=== PATIENT | female | born 1995 | race Caucasian/White ===

== ENCOUNTER → 2019-11-09 | Outpatient (CLI) | payer OTHER ==
[2016-06-08 20:15] VITALS: BP 104/64
[~2019-11-09] MED LIST: HYDR-2155 PO; ONDA4TAB10 PO
--- NOTE | 2019-11-09 16:20 | RAD ---
OB ultrasound greater than 14 weeks 11/09/2019 Clinical History: Second trimester . Size/date discrepancy. Technique: A real-time ultrasound examination of the gravid uterus was performed. Multiple images were obtained. Findings: Comparison study is dated 09/17/2019. There is a single living IUP. The fetus is in a cephalic position. cardiac and somatic activity is seen. The heart rate is 141 beats per minutes. The maternal cervix is closed. It measures 4.6 cm in length. The placenta is posterior. No abnormality is seen. The amniotic fluid volume is within normal limits. Neither maternal ovary is visualized. No adnexal mass is seen. The following measurements were obtained: BPD 6.0cm 24 weeks to days HC 22 cm 24weeks 0 days AC 19.3 cm 24weeks 0 days FL 4.3 cm 23 weeks 6 days The estimated gestational age by ultrasound is 24 weeks 0 days plus or minus a standard deviation of 10 days. The estimated date of delivery by ultrasound is 02/29/2020. Since the previous examination there has been appropriate interval growth. No abnormality is seen. Specifically the stomach, bladder, kidneys, 3 vessel cord and cord insertion, cisterna magna, cerebellum, nose/mouth, spine and extremities are well-visualized and within normal limits. The heart is not well-visualized due to position. Impression: Single living IUP with an estimated gestational age by ultrasound of 24 weeks0 days +/- a standard deviation of 10 days. Since the previous examination there has been appropriate interval growth. Electronically signed by: Rene Marin MD (11/09/2019 4:17 PM) [id number]
== END | disposition home or self-care (01) ==
LOC: US 13:53
PROVIDERS: ATTEND Obstetrics & Gynecology
DX: O26.842 Uterine size-date discrepancy, second trimester (principal); Z3A.24 24 weeks gestation of pregnancy
CPT/HCPCS: 76805